=== PATIENT | female | born 2000 | race Caucasian/White ===

== ENCOUNTER 2024-02-28 14:17 | Emergency (ER) | payer MEDICAID ==
[~2024-02-28] VITALS: Ht 152.4 cm; Wt 52.2 kg
[2024-02-28] MEDS ORDERED: LORAZEPAM 1 MG TABLET ONE (14:33)
[2024-02-28] MEDS: LORAZEPAM 1 MG TABLET PO ONE (14:36)
[2024-02-28 16:26] VITALS: BP 144/77; TEMP 98.3; O2SAT 100
== END 2024-02-28 16:26 | disposition home or self-care (01) ==
LOC: ER 14:26
DX: F41.9 Anxiety disorder, unspecified (principal); R00.2 Palpitations; R51.9 Headache, unspecified; R94.31 Abnormal electrocardiogram [ECG] [EKG]
CPT/HCPCS: 71045-TC